=== PATIENT | male | born 2000 | race Two or more races ===

== ENCOUNTER 2021-05-26 18:39 | Emergency (ER) | payer SELFPAY ==
[~2021-05-26] VITALS: Ht 167.6 cm; Wt 56.2 kg
[2021-05-26 18:41] VITALS: BP 139/80
== END 2021-05-26 23:42 | disposition home or self-care (01) ==
LOC: ER 18:41
DX: T15.91XA Foreign body on external eye, part unspecified, right eye, initial encounter (principal); X58.XXXA Exposure to other specified factors, initial encounter; Y93.89 Activity, other specified; Y92.89 Other specified places as the place of occurrence of the external cause; Y99.8 Other external cause status
CPT/HCPCS: 65220